=== PATIENT | female | born 1970 | race Caucasian/White ===

== ENCOUNTER → 2020-09-17 | Outpatient (CLI) | payer BC ==
[2020-09-17 11:03] LABS: Basophils # (A) 0.1 k/uL (0-0.2); Basophils % (A) 1 %; Eosinophils # (A) 0.6 k/uL (0-0.7); Eosinophils % (A) 8 %; HCT 45.5 % (34.0-46.0); HGB 14.8 gm/dL (11.4-16.0); Lymphocytes # (A) 2.3 k/uL (1.0-4.8); Lymphocytes % (A) 31 %; MCH 30.8 pg (25.0-35.0); MCHC 32.6 g/dL (31.0-37.0); MCV 94.5 fL (80.0-100.0); Mean Platelet Volume 7.7; Monocytes # (A) 0.4 k/uL (0-1.0); Monocytes % (A) 6 %; Neutrophils # (A) 3.9 k/uL (1.3-7.7); Neutrophils % (A) 53 %; Platelet Count 273 k/uL (150-450); RBC 4.81 m/uL (3.80-5.40); RDW 12.9 % (11.5-15.5); WBC 7.3 k/uL (3.8-10.6)
== END | disposition home or self-care (01) ==
LOC: LABPAT 10:41
PROVIDERS: ATTEND Obstetrics & Gynecology
DX: Z01.812 Encounter for preprocedural laboratory examination (principal)
CPT/HCPCS: 36415; 85025; 93005

== ENCOUNTER 2020-09-26 06:21 | Day surgery (SDC) | payer BC ==
[2020-09-23 09:41] VITALS: BMI 24.3
--- NOTE | 2020-09-23 16:17 | P.HPOB ---
History of Present Illness H&P Date: 09/23/20 Chief Complaint: Postmenopausal bleeding Ania is a 50-year-old female who has postmenopausal bleeding. She is noted to have a thin endometrium, however she did have more episode of bleeding following the initial episode and due to that we are proceeding with a D&C with hyst eroscopy. Risks/benefits/term's this procedure were reviewed with patient in detail and all questions were answered for her prior to proceeding to the operating room. Past Medical History Additional Past Medical History / Comment(s): Varicose veins History of Any Multi-Drug Resistant Organisms: None Reported Past Surgical History: Section, Cholecystectomy, Tubal Ligation Past Anesthesia/Blood Transfusion Reactions: No Reported Reaction Smoking Status: Current every day smoker - Past Family History Mother Family Medical History: Cancer Additional Family Medical History / Comment(s): Bladder cancer Medications and Allergies Home Medications Medication Instructions Recorded Confirmed Type ALPRAZolam [Xanax] 0.5 mg PO DAILY PRN 09/23/20 09/23/20 History Citalopram Hydrobromide [CeleXA] 10 mg PO Q2D PRN 09/23/20 09/23/20 History Ibuprofen [Advil] 400 mg PO Q8HR PRN 09/23/20 09/23/20 History Allergies Allergy/AdvReac Type Severity Reaction Status Date / Time No Known Allergies Allergy Verified 09/23/20 09:41 Exam Osteopathic Statement: *. No significant issues noted on an osteopathic structural exam other than those noted in the History and Physical/Consult. Intake and Output 09/23/20 09/23/20 09/23/20 06:59 14:59 22:59 Other: Weight 74.843 kg - OBG Physical Exam Breast: both: normal (no masses) Abdomen: bowel sounds normal, no diffuse tenderness, no bruit present, no guarding noted, no hepatomegaly, no splenomegaly, no mass Vulva: both: normal Vagina: normal moisture, no discharge Cervix: no lesion, no discharge Uterus: normal size, normal contour Adnexa: both: normal Anus/Rectum: normal perianal skin, no rectal mass, no hemorrhoids, heme negative
[~2020-09-26 06:21] MED LIST: DEXAMETHASONE SOD PHOSPHATE 4 MG/ML 1 ML VIAL IV ONE; LACTATED RINGERS 1,000 ML IV SCH; MIDAZOLAM 2 MG/2 ML VIAL IV PRN; ONDANSETRON 4 MG/2 ML VIAL IVP ONE; Pre Op ABX Message 1 EACH MISC MISCELLANE ONE; SCOPOLAMINE 1.5MG/72HR PATCH TRANSDERM ONE
[2020-09-26] MEDS ORDERED: HYDROmorphone 0.5 MG/0.5 ML SYRINGE IVP PRN (07:00)
[2020-09-26] MEDS ORDERED: LIDOCAINE 1% (10MG/ML) FOR IV START INTRADERMA ONE (07:14)
[2020-09-26] MEDS ORDERED: PROPOFOL 10 MG/ML 20 ML VIAL IV ONE (07:25)
[2020-09-26] MEDS ORDERED: KETOROLAC 15 MG/ML 1 ML VIAL ONE (07:25)
[2020-09-26] MEDS ORDERED: MIDAZOLAM 2 MG/2 ML VIAL ONE (07:25)
[2020-09-26] MEDS ORDERED: LIDOCAINE 1% INJ 10MG/ML (20 ML MDV) ONE (07:25)
[2020-09-26] MEDS ORDERED: fentaNYL (PF) 50 MCG/ML 2 ML AMP ONE (07:25)
--- NOTE | 2020-09-26 08:00 | P.OP ---
Date of Procedure: 09/26/20 Preoperative Diagnosis: Postmenopausal bleeding Postoperative Diagnosis: Same Procedure(s) Performed: D&C with hysteroscopy Anesthesia: WOO Surgeon: Tate Leonard Estimated Blood Loss (ml): 1 IV fluids (ml): 300 Pathology: other (Uterine curettings) Condition: stable Disposition: same day Operative Findings: Pathology pending Description of Procedure: Patient was taken to the operating suite where a general anesthetic was found be adequate. She was prepped and draped in the normal sterile fashion and placed in dorsal lithotomy position. Initially a weighted speculum was inserted in the vagina and anterior lip of the cervix identified grasped with an Allis clamp. Cervix was then dilated and sounded to 7 cm. Camera was then inserted. Limited pathologies noted therefore camera was removed and sharp curettings of end ometrium were obtained. All tissues collected, placed on Telfa, and placenta pathology for evaluation. Once completed, incidents removed. Sponge, lap, needle counts were all correct 2. Patient was then taken to the recovery room in stable and satisfactory condition. Plan - Discharge Summary Discharge Rx Participant: Yes New Discharge Prescriptions: No Action Ibuprofen [Advil] 400 mg PO Q8HR PRN PRN Reason: Pain ALPRAZolam [Xanax] 0.5 mg PO DAILY PRN PRN Reason: Anxiety Citalopram Hydrobromide [CeleXA] 10 mg PO Q2D PRN PRN Reason: Anxiety Discharge Medication List ALPRAZolam [Xanax] 0.5 mg PO DAILY PRN 09/23/20 [History] Citalopram Hydrobromide [CeleXA] 10 mg PO Q2D PRN 09/23/20 [History] Ibuprofen [Advil] 400 mg PO Q8HR PRN 09/23/20 [History]
[2020-09-26 08:16] VITALS: TEMP 97.3
[2020-09-26 08:21] VITALS: RESP 16
[2020-09-26] MEDS ORDERED: LACTATED RINGERS 1,000 ML IV ONE (08:51)
[2020-09-26 09:23] VITALS: BP 96/56; PULSE 56
== END 2020-09-26 09:36 | disposition home or self-care (01) ==
LOC: OR 06:21
PROVIDERS: ATTEND Obstetrics & Gynecology
DX: N95.0 Postmenopausal bleeding (principal); F17.200 Nicotine dependence, unspecified, uncomplicated; Z80.52 Family history of malignant neoplasm of bladder
CPT/HCPCS: 58558; 81025; 88305; J2250; J1100; J2405; J2001; J3010; J1885; J2704; J1170

== ENCOUNTER → 2024-02-11 | Outpatient (CLI) | payer BC ==
--- NOTE | 2024-02-11 08:26 | BD ---
EXAMINATION TYPE: Axial Bone Density DATE OF EXAM: 02/11/2024 CLINICAL HISTORY: 53 years old Female. ICD-10 CODE: N95.1 MENOPAUSAL STATE , Additional History: Height: 5 ft 8 in Weight: 162 FRAX RISK QUESTIONS: Alcohol (3 or more units per day): no Family History (Parent hip fracture): no Glucocorticoids (More than 3mos): no (Ex: prednisone, prednisolone, methylprednisolone, dexamethasone, and hydrocortisone). History of Fracture in Adulthood: yes Secondary Osteoporosis: 1. Type 1 Diabetes: no 2. Hyperthyroidism: no 3. Menopause before 45: no 4. Malnutrition: no 5. Chronic liver disease: no Rheumatoid Arthritis: no Current Tobacco Use: yes RISK FACTORS HISTORY OF: Surgery to Spine/Hip(right/left)/Wrist (right/left): no MEDICATIONS: Thyroid Medications: none Osteoporosis Medications: none now/ just stopped in july EXAM MEASUREMENTS: Bone mineral densitometry was performed using the [employer] System. Bone mineral density as measured about the Lumbar spine is: ----- L1-L4(G/cm2): 0.860 T Score Values are as follows: ----- L1: -1.8 ----- L2: -3.2 ----- L3: -2.9 ----- L4: -2.8 ----- L1-L4: -2.7 Z Score Values are as follows: ----- L1: -1.3 ----- L2: -2.8 ----- L3: -2.4 ----- L4: -2.3 ----- L1-L4: -2.2 prev done [facility] Bone mineral density about the R hip (g/cm2): 0.794 Bone mineral density about the L hip (g/cm2): 0.771 T Score values are as follows: -----R Neck: -1.8 -----L Neck: -1.9 -----R Total: -1.8 -----L Total: -1.8 Z Score values are as follows: -----R Neck: -0.9 -----L Neck: -1.1 -----R Total: -1.4 -----L Total: -1.3 prev done at [facility] FRAX%s: The graph provided illustrates a 13.9 % chance for a major osteoporotic fx and a 3.0 % chance for the hips probability for fx in 10 years time. IMPRESSION: Osteoporosis (T Score less than -2.5). There is increased fracture risk and therapy is usually indicated based on age. Re-Screen 1-2 years. NOTE: T-SCORE=SD OF THE YOUNG ADULT MEAN. [facility], , 02/11/2024 8:24 AM
--- NOTE | 2024-02-12 12:10 | MM ---
Reason for Exam: Screening (asymptomatic). Last mammogram was performed 1 year(s) and 4 month(s) ago. Patient History: Menarche at age 12. First Full-Term at age 19. Postmenopausal. Previous chest radiation therapy. Maternal aunt had breast cancer, age 70. Risk Values: Danielle 5 year model risk: 1.0%. NCI Lifetime model risk: 7.5%. Prior Study Comparison: 09/21/2021 Bilateral Screening Mammogram, [facility]. 10/16/2022 Bilateral Screening Mammogram, [facility]. Tissue Density: There are scattered areas of fibroglandular density. Findings: Analyzed By CAD. Right breast: There is no suspicious group of microcalcifications or new suspicious mass. Stable decrease in size right breast lesions. Left breast: There is no suspicious group of microcalcifications or new suspicious mass. Overall Assessment: Benign, BI-RAD 2 Management: Screening Mammogram of both breasts in [address] [facility] will attempt to contact patient to return for supplemental views and ultrasound if indicated. Patient should continue monthly self-breast exams. A clinical breast exam by your physician is recommended on an annual basis. This exam should not preclude additional follow-up of suspicious palpable abnormalities. Note on Danielle scores and lifetime risk: 1. A Danielle score greater than 3% is considered moderate risk. If this is the case, consider specialist referral to assess eligibility for a risk reducing agent. 2. If overall lifetime risk for the development of breast cancer is 20% or higher, the patient may qualify for future screening with alternating mammogram and breast MRI. [facility], , 02/12/2024 12:08 PM. Electronically signed and approved by: Garett Yost DO
== END | disposition home or self-care (01) ==
LOC: RADMAMWWP 06:57
PROVIDERS: ATTEND Obstetrics & Gynecology
DX: Z12.31 Encounter for screening mammogram for malignant neoplasm of breast (principal); Z78.0 Asymptomatic menopausal state; Z80.3 Family history of malignant neoplasm of breast; R92.323 Mammographic fibroglandular density, bilateral breasts; M81.8 Other osteoporosis without current pathological fracture
CPT/HCPCS: 77063; 77067; 77080